=== PATIENT | female | born 1945 | race Caucasian/White ===

== ENCOUNTER 2017-05-24 06:47 | Inpatient (IN) | payer OTHER ==
[2017-05-03 11:57] VITALS: BMI 33.0
--- NOTE | 2017-05-03 12:31 | PAT Medication Instructions ---
Service Date May 03, 2017. Current Home Medication List Amlodipine (Norvasc), 10 MG PO QAM Estradiol (Estradiol), 1 TAB PO QPM Pediatric Multiple Vitamin W/ (Gummi Bear Multivitamin/M), 1 TAB PO QAM Ropinirole (Requip), 2 MG PO QPM Rosuvastatin Calcium (Crestor), 5 MG PO QPM Sennosides-Docusate Sodium (Stool Softener), 1 TAB PO BID Spironolactone (Aldactone), 25 MG PO QAM Tramadol (Ultram), 1-2 TAB PO UD PRN for Pain Medication Instructions For Your Scheduled Surgery - Check with surgeon for instructions: Estradiol (Estradiol), 1 TAB PO QPM - Hold the following medications 24 hours prior to surgery: Ropinirole (Requip), 2 MG PO QPM - Hold the following medications the morning of surgery: Pediatric Multiple Vitamin W/ (Gummi Bear Multivitamin/M), 1 TAB PO QAM Sennosides-Docusate Sodium (Stool Softener), 1 TAB PO BID Spironolactone (Aldactone), 25 MG PO QAM - Take the following medications the morning of surgery with a sip of water: Tramadol (Ultram), 1-2 TAB PO UD PRN for Pain (okay to take up to 4 hours prior to surgery if needed) Amlodipine (Norvasc), 10 MG PO QAM - Take the following medications as scheduled the night before surgery: Tramadol (Ultram), 1-2 TAB PO UD PRN for Pain (if needed) Sennosides-Docusate Sodium (Stool Softener), 1 TAB PO BID Rosuvastatin Calcium (Crestor), 5 MG PO QPM If you have any questions please call us at [phone] or [phone] or [phone]
--- NOTE | 2017-05-03 13:24 | DIAGNOSTIC IMAGING REPORT ---
CHEST 2 VIEWS ROUTINE CLINICAL HISTORY: Preoperative evaluation. COMPARISON STUDY: No previous studies for comparison. FINDINGS: Lung volumes are normal. There is no consolidation to suggest pneumonia and there is no evidence of pulmonary edema. Cardiac size is normal. A suspected moderate sized hiatal hernia is noted. IMPRESSION: 1. No acute cardiopulmonary findings. 2. Suspected moderate sized hiatal hernia. Electronically signed by: Bandar Calix M.D. 05/03/2017 1:22 PM Dictated Date/Time: 05/03/2017 1:21 PM
[2017-05-03 14:12] LABS: BASO % 0.3 %; BASO ABS # 0.02 K/uL (0-0.2); EOS % 3.2 %; EOS ABS # 0.21 K/uL (0-0.5); HEMATOCRIT 39.8 % (37-47); HEMOGLOBIN 13.6 g/dL (12.0-16.0); IG# 0.01 K/uL (0.00-0.02); LYMPH % 32.9 %; LYMPH ABS # 2.15 K/uL (1.2-3.4); MEAN CELL VOLUME 91.1 fL (80-100); MEAN CORPUSCULAR HEMOGLOBIN 31.1 pg (25-34); MEAN CORPUSCULAR HGB CONC 34.2 g/dl (32-36); MEAN PLATELET VOLUME 8.9 fL (7.4-10.4); MONO ABS # 0.65 K/uL (0.11-0.59); NEUT % 53.4 %; NEUT ABS # 3.49 K/uL (1.4-6.5); PLATELET COUNT 273 K/uL (130-400); RED CELL DISTRIBUTION WIDTH CV 13.2 % (11.5-14.5); WHITE BLOOD COUNT 6.53 K/uL (4.8-10.8)
[2017-05-03 14:22] LABS: PTT PATIENT 24.8 SECONDS (21.0-31.0)
[2017-05-03 14:51] LABS: CALCIUM 9.4 mg/dl (8.5-10.1); CREATININE 0.87 mg/dl (0.60-1.20); POTASSIUM 3.7 mmol/L (3.5-5.1)
[2017-05-03 14:54] LABS: TOTAL PROTEIN 8.2 gm/dl (6.4-8.2)
--- NOTE | 2017-05-23 20:14 | History and Physical ---
History & Physical Date May 23, 2017. Chief Complaint RIGHT KNEE PAIN History of Present Illness The patient is a 71 year old female with complaints of right knee pain for years. Cant do adls. Has hx of infection of right knee which has been treated. has tried PT and nsaids. Additional History Hepatic Disease: No Endocrine Disorder: No Kidney Disease: No Hypertension: Yes Heart Disease: No Bleeding Tendencies: No Infectious Diseases: No Allergies Coded Allergies: Hydrocodone (Verified Allergy, Unknown, NAUSEA, 05/03/17) Ibuprofen (Verified Allergy, Unknown, GI UPSET, 05/03/17) Levofloxacin (Verified Allergy, Unknown, HIVES, 05/03/17) Prochlorperazine (Verified Allergy, Unknown, NAUSEATED, SICK, ? BP ISSUE, 05/03/17) Sertraline (Verified Allergy, Unknown, MUSCLE SORENESS AND SICKNESS, ) Tetanus Toxoid (Verified Allergy, Unknown, HOT FLASHES - SITE RED, ) PT HAS "TETANUS" LISTED ALLERGY Valsartan (Verified Allergy, Unknown, HIVES, 05/03/17) Vancomycin (Verified Allergy, Unknown, HIVES, 05/03/17) Home Medications Scheduled Amlodipine (Norvasc), 10 MG PO QAM Estradiol (Estradiol), 1 TAB PO QPM Pediatric Multiple Vitamin W/ (Gummi Bear Multivitamin/M), 1 TAB PO QAM Ropinirole (Requip), 2 MG PO QPM Rosuvastatin Calcium (Crestor), 5 MG PO QPM Sennosides-Docusate Sodium (Stool Softener), 1 TAB PO BID Spironolactone (Aldactone), 25 MG PO QAM Scheduled PRN Tramadol (Ultram), 1-2 TAB PO UD PRN for Pain Physical Examination Skin: warm/dry, no rash Eyes: normal inspection, EOMI, sclerae normal ENT: normal ENT inspection, pharynx normal Head: normocephalic, atraumatic Neck: supple, no adenopathy, trachea midline Respiratory/Chest: lungs clear, normal breath sounds, no respiratory distress Cardiovascular: regular rate, rhythm, no edema, no murmur Abdomen / GI: normal bowel sounds, non tender Back: normal inspection Extremities: normal inspection, normal range of motion, + pertinent finding ( pain with rom right knee and joint line tenderness. ) Neurologic/Psych: no motor/sensory deficits, alert, normal reflexes, oriented x 3 Diagnosis DJD RIGHT KNEE Plan of Treatment PLAN IS FOR ADMISSION AND UNDERGO RIGHT TOTAL KNEE REPLACEMENT WITH HOME PT.
[2017-05-24] VITALS (11 sets, daily range): BP systolic 92–138; BP diastolic 57–85; PULSE 65–73; TEMP 36.3–36.7; O2SAT 92–96; Ht 162.6 cm; Wt 89.0 kg
[~2017-05-24] VITALS: Ht 162.6 cm; Wt 89.0 kg
[2017-05-24] MEDS: TRANEXAMIC ACID INJ 1,000 MG x 2 Bags IV SCH ×4 (06:30→09:05)
[~2017-05-24 06:47] MED LIST: ACETAMINOPHEN 500 MG TAB PO SCH; AMLO-114 PO; BUPIVACAINE 0.25% 30 ML VIAL ONE; BUPIVACAINE 0.5 % 5 MG/1 ML PF 10ML VIAL ONE; CEFAZOLIN 2000MG IV PUSH 15 ML IV SCH; CRS/10 PO; CeleBREX 200 MG CAP PO SCH; DEXAMETHASONE 4 MG TAB PO SCH; ESTR0.5T3 PO; FAMOTIDINE 20 MG TAB PO SCH; LACTATED RINGER'S 1000ML 1,000 ML IV SCH; LACTATED RINGER'S 1000ML 500 ML IV SCH; LACTATED RINGER'S 1000ML IV SCH; METOCLOPRAMIDE HCL 10 MG TAB PO SCH; PEDICHW34 PO; ROPI2TAB6 PO; ROPIVACAINE 5MG/ML 30 ML 150 MG, BUPIVACAINE 0.5% MPF INJ 30 ML, EpINEphrine HCL INJ 0.... INFIL SCH; SENNTAB23 PO; SPIR25TA PO; TRAM-10 PO
[2017-05-24] MEDS ORDERED: EpHEDrine SULFATE INJ 50 MG/ML AMP IV PRN (07:30)
[2017-05-24] MEDS ORDERED: ATROPINE SULFATE 0.1 MG/ML 5ML SYR IV PRN (07:30)
[2017-05-24] MEDS ORDERED: ONDANSETRON INJ 2 MG/ML 2 ML VIAL IV PRN ×2 (07:30→10:30)
--- NOTE | 2017-05-24 08:31 | History & Physical Bridge Note ---
H&P Re-Evaluation Bridge Note: I have examined the patient, reviewed the History & Physical and in the interval since the performance of the History & Physical I have noted the following changes of clinical significance: No changes noted
[2017-05-24] MEDS ORDERED: ORTHO JOINT ANESTHETIC ONE (08:40)
[2017-05-24] MEDS ORDERED: BACITRACIN 50000 UNIT VIAL ONE (08:41)
[2017-05-24] MEDS ORDERED: POVIDONE-IODINE OP SOLN 30 ML BTL ONE (08:41)
[2017-05-24] MEDS ORDERED: MIDAZOLAM HCL 1 MG/ML 2ML VIAL ONE (09:02)
[2017-05-24] MEDS ORDERED: FENTANYL CITRATE INJ 50 MCG/1 ML 2 ML VIAL ONE (09:02)
[2017-05-24] MEDS ORDERED: ONDANSETRON INJ 2 MG/ML 2 ML VIAL ONE (09:54)
[2017-05-24] MEDS ORDERED: CEFAZOLIN IV 2 MG in DEXTROSE 5% 50ML 50 ML IV SCH (10:30)
[2017-05-24] MEDS ORDERED: ALUMINUM/MAGNESIUM/SIMETH (MAALOX MAX) 30 ML UDC PO PRN (10:30)
[2017-05-24] MEDS ORDERED: ZOLPIDEM TARTRATE 5 MG TAB PO PRN (10:30)
--- NOTE | 2017-05-24 10:32 | [facility] Operative Report ---
Operative Report Operative Date May 24, 2017. Pre-Operative Diagnosis Degenerative Joint Disease right knee Post-Operative Diagnosis SAME PREOP Procedure(s) Performed Right total knee arthroplasty with the use of patient matched implants Surgeon Dr. Hartmann Help Desk Consultant Surgeon(s) Zack Washburn PAC Estimated Blood Loss 20ML Findings As above Specimens Right knee bone and tissue Drains None Anesthesia Type MAC Spinal Regional Complication(s) none Disposition Recovery Room / PACU Description of Procedure IMPLANTS USED: Sullivan nephew journey to the size 5 cemented femoral component, a size 4 tibial component, a size 11 PS insert and size 32 all polyethylene patella INDICATIONS: Mrs. Johnson is a pleasant female) who has unfortunately failed all forms of conservative measures. Therefore, they have decided to undergo elective surgical intervention. All risks and benefits of the surgery were discussed with the patient and the family in entirety. PROCEDURE: The patient was brought to the operating room and properly identified by myself, anesthesia, and staff. Patient was given a spinal anesthesia and placed on the operating table in the supine position. Tourniquets were applied to the right upper thigh. The leg was then prepped and draped in usual sterile fashion. We made a standard midline approach over the patella and dissected down through the subcutaneous tissue to identify the capsule and performed a medial capsulotomy with the patella everted and the knee flexed.The patient matched implant was then put onto the femur. The femur measured to be a size 5. This was then put into place. We made the appropriate cuts and then placed a retractor behind the proximal tibia to retract anteriorly. We then placed the patient matched knee implant on the tibia. It measured to be a size 4. A size 4 guide was then put in place. We used the tibial punch then put the trial components into place. We had very good range of motion, excellent stability, and excellent patella tracking. We removed the trial components and irrigated the wound. We impacted the components in place using antibiotic cement. All excess cement was removed. We then irrigated the wound once more. We closed the capsule with 0 PDS suture , deep dermis and 2-0 Vicryl, and finally the skin with jose. A sterile dressing was applied. The patient was taken to the recovery room in stable condition. Due to the complex nature of the procedure, the entire surgery was performed with the operational assistance of the CAROL. The pastry assistant was under direct supervision, was involved in the actual performance of all aspects of the surgical procedure including hemostasis, tissue retraction and incision, instrument management, patient positioning, and wound closure. I attest to the content of the Intraoperative Record and any orders documented therein. Any exceptions are noted below.
--- NOTE | 2017-05-24 11:34 | Anesthesiology Progress Note ---
Anesthesia Post Op Note Date & Time May 24, 2017 at 11:34 Vital Signs Pain Intensity: 0 Vital Signs Past 12 Hours Date Time Temp Pulse Resp B/P (MAP) Pulse Ox O2 Delivery O2 Flow Rate FiO2 05/24/17 11:20 72 16 100/51 94 Nasal Cannula 4 05/24/17 11:10 77 16 112/58 94 Oxymask 10 05/24/17 11:00 37. 82 14 127/64 94 Oxymask 10 05/24/17 07:35 36.5 72 20 138/85 93 Room Air Notes Mental Status: alert / awake / arousable, participated in evaluation Pt Amnestic to Procedure: Yes Nausea / Vomiting: adequately controlled Pain: adequately controlled Airway Patency, RR, SpO2: stable & adequate BP & HR: stable & adequate Hydration State: stable & adequate Neuraxial Anesthesia: was administered, sensory block is resolving Anesthetic Complications: no major complications apparent
[2017-05-24] MEDS: ACETAMINOPHEN 500 MG TAB PO SCH ×2 (14:07→21:28)
[2017-05-24] MEDS: SODIUM CHLORIDE 0.9% 1000ML 1,000 ML IV SCH ×2 (14:07→22:22)
[2017-05-24] MEDS ORDERED: TRANEXAMIC ACID INJ 1,000 MG in SODIUM CHLORIDE 0.9% 100ML 100 ML IV SCH (17:00)
[2017-05-24] MEDS: CEFAZOLIN IV 2,000 MG in SYRINGE 0 ML IV SCH (17:36)
[2017-05-24] MEDS: ROSUVASTATIN CALCIUM 10 MG TAB PO SCH (19:37)
[2017-05-24] MEDS: ROPINIROLE HCL 1 MG TAB PO SCH (19:37)
[2017-05-24] MEDS: ASPIRIN 81 MG ECTAB PO SCH (19:38)
[2017-05-24] MEDS: OXYCODONE HCL IR 5 MG TAB (IMMEDIATE RELEASE) PO PRN ×2 (19:39→20:19)
[2017-05-25] MEDS: CEFAZOLIN IV 2,000 MG in SYRINGE 0 ML IV SCH (02:29)
[2017-05-25 03:24] VITALS: BP 108/66; PULSE 74; TEMP 36.8; O2SAT 96
[2017-05-25] MEDS: OXYCODONE HCL IR 5 MG TAB (IMMEDIATE RELEASE) PO PRN ×3 (03:46→21:45)
[2017-05-25] MEDS: ACETAMINOPHEN 500 MG TAB PO SCH ×3 (06:11→21:39)
[2017-05-25] MEDS ORDERED: DEXAMETHASONE INJ 10 MG in SYRINGE 0 ML IV SCH (07:30)
[2017-05-25 07:52] VITALS: BP 115/72; PULSE 59; TEMP 36.9; O2SAT 90
--- NOTE | 2017-05-25 08:06 | Orthopedic Progress Note ---
Orthopedic Progress Note Date of Service May 25, 2017. Subjective Post OP Day: 1 Reports: feeling well, Denies: chest pain, SOB, nausea / vomiting, light headedness Objective calves soft nontender, N/V intact, capillary refill less than 2 sec., dressing C /D/I, A&O x3, toes mobile Date Time Temp Pulse Resp B/P (MAP) Pulse Ox O2 Delivery O2 Flow Rate FiO2 05/25/17 07:52 36.9 59 16 115/72 (86) 90 Room Air 05/25/17 07:10 Nasal Cannula 2.0 05/25/17 03:24 36.8 74 16 108/66 (80) 96 Nasal Cannula 2.0 05/24/17 22:59 36.7 72 16 100/64 (76) 95 Room Air 05/24/17 19:15 92 Nasal Cannula 2.0 05/24/17 15:33 Nasal Cannula 05/24/17 15:30 36.4 70 20 97/62 (74) 96 Nasal Cannula 3.0 05/24/17 14:50 36.3 70 16 92/58 (69) 94 Nasal Cannula 2.0 05/24/17 13:50 36.4 71 16 103/65 (78) 95 Nasal Cannula 3.0 05/24/17 12:50 36.3 65 16 92/57 (69) 94 Nasal Cannula 3.0 05/24/17 12:20 36.6 70 14 100/65 (77) 92 Nasal Cannula 3.0 05/24/17 11:53 94 Nasal Cannula 3.0 05/24/17 11:50 94 Nasal Cannula 3.0 05/24/17 11:49 36.4 73 16 103/66 (78) 94 Nasal Cannula 3.0 05/24/17 11:40 36.8 72 16 118/64 98 Nasal Cannula 4 05/24/17 11:30 71 16 110/64 97 Nasal Cannula 4 05/24/17 11:20 72 16 100/51 94 Nasal Cannula 4 05/24/17 11:10 77 16 112/58 94 Oxymask 10 05/24/17 11:00 37. 82 14 127/64 94 Oxymask 10 Assessment & Plan Assessment: POD#1 SP RIGHT TKA Plan: PT/OT DVT PROPH- ASA 81MG BID PAIN MANAGEMENT- [facility], TYLENOL DC PLANNING- REQUESTING REFERRAL TO [facility]. STABLE FOR TRANSFER TODAY IF ACCEPTED.
[2017-05-25] MEDS ORDERED: ASPEC81 PO (08:08)
[2017-05-25] MEDS ORDERED: RXC5 PO (08:08)
[2017-05-25] MEDS ORDERED: ACET-24 PO (08:08)
[2017-05-25] MEDS ORDERED: ONDA8TAB6 PO (08:08)
[2017-05-25] MEDS ORDERED: CEFA500C2 PO (08:08)
--- NOTE | 2017-05-25 08:09 | Discharge Instructions ---
Discharge Instructions Date of Service May 25, 2017. Admission Reason for Admission: Right Knee Osteoarthritis Discharge Discharge Diagnosis / Problem: SP RIGHT TKA Discharge Goals Goal(s): Decrease discomfort, Improve function, Increase independence Activity Recommendations Activity Level: Assistance Required Therapies: Physical Therapy, Weight Bearing Status, Occupational Therapy Weightbearing Status: Right weightbearing . Additional Information Patient informed of condition: Yes Advance Directives: Yes DNR: No Level of Care: Acute Rehab Communicable Disease: No Prognosis: Stable Instructions / Follow-Up Instructions / Follow-Up ACTIVITY RECOMMENDATIONS: SELF CARE INSTRUCTIONS AFTER TOTAL KNEE REPLACEMENT A. You may need to continue a physical therapy program after discharge from the hospital. There are several options available to you. Your doctor will assist you in selecting the best one for you. 1. An out-patient facility 2 to 3 times a week for therapy or home therapy. 2. Continue working on all exercises taught to you in the hospital. Your goals should be to increase bending of your knee to 90 degrees and beyond and to fully straighten your knee. B. You may progress at your own pace from walking with a walker or crutches to a cane; then to no assistive devices. C. Make walking a part of your daily routine. Be up as much as comfortable with rest periods throughout the day. Rest with leg elevation is very important. Use the ice wrap frequently for the first 3-4 weeks. D. There are no restrictions on activities. You may ride in a car, shop, participate in stuffed casing tier and all social activities. E. Wear the long elastic stockings (SARAH hose) 20 hours a day for 2 weeks after surgery. They can be removed several times a day for laundering and for a bath. F. You may shower, no tub baths until cleared by your doctor. SPECIAL CARE INSTRUCTIONS: VERY IMPORTANT TO READ AND REVIEW A. There are a few signs you need to watch for after you are home. Call [facility] if you notice any of the followin. Increased severe knee pain. Some pain is expected especially when you exercise. 2. Increased swelling in your leg or knee; pain or swelling of the calf muscle in either lower leg. 3. Any fluid drainage from the incision. 4. Shortness of breath or chest pain. B. Please call [facility] at if you have any concerns or questions about your operation or recovery. The doctor or his nurse will return your call promptly. C. You must take antibiotics before dental work, bladder, bowel or other surgery. Your doctor will provide you with a permanent care to carry describing this precaution. IMPORTANT: * REMEMBER TO TAKE ASPIRIN, 81 MG, TWICE DAILY FOR 4 WEEKS UNLESS OTHERWISE DIRECTED. THIS IS YOUR BLOOD THINNER. * HIGH RISK PATIENTS MAY BE PRESCRIBED A STRONGER BLOOD THINNER. THIS WILL BE PROVIDED AT DISCHARGE. * CALL IF INCREASED PAIN, REDNESS, DRAINAGE OR FEVER GREATER THAT 101. * WEAR SARAH HOSE 20 HOURS PER DAY FOR 2 WEEKS. * YOU MAY HAVE A LARGE BAND-AID LIKE DRESSING (SILVERON). THIS WILL REMAIN ON YOUR INCISION FOR 7 DAYS, THEN CAN BE REMOVED. IF INCISION IS LEAKING THROUGH DRESSING, CALL THE OFFICE . FOLLOW UP VISIT: If appointment is not already scheduled: Please call [facility] to make a follow-up appointment for 2 weeks after your surgery at . Current Hospital Diet Patient's current hospital diet: Regular Diet Discharge Diet Recommended Diet: Regular Diet Procedures Procedures Performed: Right total knee arthroplasty with the use of patient matched implants Pending Studies Studies pending at discharge: no Physician Orders On Transfer Additional Orders: DC DRESSING POD2 FOLLOW UP IN 2 WEEKS SCHEDULED AT U. [phone]. ASA 81MG BID X 30 DAYS Medical Emergencies . Who to Call and When: Medical Emergencies: If at any time you feel your situation is an emergency, please call 151 immediately. . Non-Emergent Contact Non-Emergency issues call your: Surgeon . . "Provider Documentation" section prepared by Mildred Briceño. . Core Measure Problem Core Measures: None [place] Drug Monitoring Program Search Results: patient reviewed within database, no issues identified
--- NOTE | 2017-05-25 08:22 | Anesthesiology Progress Note ---
Anesthesia Post Op Note Date & Time May 25, 2017 at 08:21 Vital Signs Pain Intensity: 0.0 Vital Signs Past 12 Hours Date Time Temp Pulse Resp B/P (MAP) Pulse Ox O2 Delivery O2 Flow Rate FiO2 05/25/17 07:52 36.9 59 16 115/72 (86) 90 Room Air 05/25/17 07:10 Nasal Cannula 2.0 05/25/17 03:24 36.8 74 16 108/66 (80) 96 Nasal Cannula 2.0 05/24/17 22:59 36.7 72 16 100/64 (76) 95 Room Air Notes Mental Status: alert / awake / arousable, participated in evaluation Pt Amnestic to Procedure: Yes Nausea / Vomiting: adequately controlled Pain: adequately controlled Airway Patency, RR, SpO2: stable & adequate BP & HR: stable & adequate Hydration State: stable & adequate Neuraxial Anesthesia: sensory block resolved Anesthetic Complications: no major complications apparent
[2017-05-25] MEDS: AMLODIPINE BESYLATE 5 MG TAB PO SCH (08:33)
[2017-05-25] MEDS: SPIRONOLACTONE 25 MG TAB PO SCH (08:33)
[2017-05-25] MEDS: SODIUM CHLORIDE 0.9% 1000ML 1,000 ML IV SCH (08:33)
[2017-05-25] MEDS: ASPIRIN 81 MG ECTAB PO SCH ×2 (08:33→21:40)
[2017-05-25 17:21] VITALS: BP 107/65; PULSE 71; TEMP 36.6; O2SAT 90
[2017-05-25] MEDS: ROPINIROLE HCL 1 MG TAB PO SCH (21:00)
[2017-05-25] MEDS: ROSUVASTATIN CALCIUM 10 MG TAB PO SCH (21:40)
[2017-05-25 23:00] VITALS: BP 108/68; PULSE 66; TEMP 36.9; O2SAT 91
[2017-05-26] MEDS: OXYCODONE HCL IR 5 MG TAB (IMMEDIATE RELEASE) PO PRN ×2 (02:38→10:06)
[2017-05-26] MEDS: ACETAMINOPHEN 500 MG TAB PO SCH (05:34)
[2017-05-26 06:14] VITALS: BP 124/83; PULSE 58; TEMP 36.7; O2SAT 93
[2017-05-26] MEDS: AMLODIPINE BESYLATE 5 MG TAB PO SCH (07:08)
[2017-05-26] MEDS: SPIRONOLACTONE 25 MG TAB PO SCH (07:08)
[2017-05-26] MEDS: ASPIRIN 81 MG ECTAB PO SCH (07:08)
--- NOTE | 2017-05-26 07:33 | Orthopedic Progress Note ---
Orthopedic Progress Note Date of Service May 26, 2017. Subjective Post OP Day: 2 Reports: feeling well, Denies: chest pain, SOB, nausea / vomiting, light headedness, calf pain Objective calves soft nontender, N/V intact, capillary refill less than 2 sec., incision C /D/I, A&O x3, toes mobile Date Time Temp Pulse Resp B/P (MAP) Pulse Ox O2 Delivery O2 Flow Rate FiO2 05/26/17 06:14 36.7 58 16 124/83 (97) 93 Room Air 05/26/17 00:10 Room Air 05/25/17 23:00 36.9 66 15 108/68 (81) 91 Room Air 05/25/17 17:21 36.6 71 18 107/65 (79) 90 05/25/17 17:00 Room Air 05/25/17 07:52 36.9 59 16 115/72 (86) 90 Room Air Assessment & Plan Assessment: POD#2 SP RIGHT TKA Plan: PT/OT DVT PROPH- ASA 81MG BID PAIN MANAGEMENT- [facility], TYLENOL GIDEON PLANNING- REQUESTING REFERRAL TO [facility]. IF PATIENT IS DENIED, SHE WILL LIKELY GO HOME WITH HOME PT. DC HOME TODAY
--- NOTE | 2017-05-26 07:35 | Discharge Instructions ---
Discharge Instructions Date of Service May 26, 2017. Admission Reason for Admission: Right Knee Osteoarthritis Discharge Discharge Diagnosis / Problem: SP RIGHT TKA Discharge Goals Goal(s): Decrease discomfort, Improve function, Increase independence Activity Recommendations Activity Limitations: per Instructions/Follow-up section . Instructions / Follow-Up Instructions / Follow-Up ACTIVITY RECOMMENDATIONS: SELF CARE INSTRUCTIONS AFTER TOTAL KNEE REPLACEMENT A. You may need to continue a physical therapy program after discharge from the hospital. There are several options available to you. Your doctor will assist you in selecting the best one for you. 1. An out-patient facility 2 to 3 times a week for therapy or home therapy. 2. Continue working on all exercises taught to you in the hospital. Your goals should be to increase bending of your knee to 90 degrees and beyond and to fully straighten your knee. B. You may progress at your own pace from walking with a walker or crutches to a cane; then to no assistive devices. C. Make walking a part of your daily routine. Be up as much as comfortable with rest periods throughout the day. Rest with leg elevation is very important. Use the ice wrap frequently for the first 3-4 weeks. D. There are no restrictions on activities. You may ride in a car, shop, participate in computer networking instructor adjunct and all social activities. E. Wear the long elastic stockings (SARAH hose) 20 hours a day for 2 weeks after surgery. They can be removed several times a day for laundering and for a bath. F. You may shower, no tub baths until cleared by your doctor. SPECIAL CARE INSTRUCTIONS: VERY IMPORTANT TO READ AND REVIEW A. There are a few signs you need to watch for after you are home. Call [facility] if you notice any of the followin. Increased severe knee pain. Some pain is expected especially when you exercise. 2. Increased swelling in your leg or knee; pain or swelling of the calf muscle in either lower leg. 3. Any fluid drainage from the incision. 4. Shortness of breath or chest pain. B. Please call [facility] at if you have any concerns or questions about your operation or recovery. The doctor or his nurse will return your call promptly. C. You must take antibiotics before dental work, bladder, bowel or other surgery. Your doctor will provide you with a permanent care to carry describing this precaution. IMPORTANT: * REMEMBER TO TAKE ASPIRIN, 81 MG, TWICE DAILY FOR 4 WEEKS UNLESS OTHERWISE DIRECTED. THIS IS YOUR BLOOD THINNER. * HIGH RISK PATIENTS MAY BE PRESCRIBED A STRONGER BLOOD THINNER. THIS WILL BE PROVIDED AT DISCHARGE. * CALL IF INCREASED PAIN, REDNESS, DRAINAGE OR FEVER GREATER THAT 101. * WEAR SARAH HOSE 20 HOURS PER DAY FOR 2 WEEKS. * YOU MAY HAVE A LARGE BAND-AID LIKE DRESSING (SILVERON). THIS WILL REMAIN ON YOUR INCISION FOR 7 DAYS, THEN CAN BE REMOVED. IF INCISION IS LEAKING THROUGH DRESSING, CALL THE OFFICE . FOLLOW UP VISIT: If appointment is not already scheduled: Please call [facility] to make a follow-up appointment for 2 weeks after your surgery at . Current Hospital Diet Patient's current hospital diet: Regular Diet Discharge Diet Recommended Diet: Regular Diet Procedures Procedures Performed: Right total knee arthroplasty with the use of patient matched implants Pending Studies Studies pending at discharge: no Medical Emergencies . Who to Call and When: Medical Emergencies: If at any time you feel your situation is an emergency, please call 911 immediately. . Non-Emergent Contact Non-Emergency issues call your: Surgeon . "Provider Documentation" section prepared by Mildred Briceño. . [place] Drug Monitoring Program Search Results: patient reviewed within database, no issues identified
[2017-05-26 07:51] VITALS: BP 124/83; PULSE 58; TEMP 36.7; O2SAT 93
--- NOTE | 2017-05-29 13:41 | DISCHARGE SUMMARY ---
DISCHARGE DIAGNOSIS: Degenerative joint disease, right knee. SECONDARY DIAGNOSES: Hypertension, hypercholesterolemia. CONSULTS: None. COMPLICATIONS: None. PROCEDURES: Right total knee arthroplasty performed by Dr. Hartmann on 05/24/2017. BRIEF HISTORY: As dictated in the history and physical. HOSPITAL SUMMARY: The patient was admitted on the above-noted date and had the above-noted surgery performed, which she tolerated well. On the first postoperative day, she was feeling well and had no complaints. Calves were soft and nontender. Neurovascularly intact. Dressings were clean, dry and intact. Toes were mobile. Vital signs were stable. She was afebrile and she was started on Trevor protocol and continued on DVT prophylaxis and pain management. The patient was hoping to go to [facility] for further care post-discharge. By her second postoperative day, she was feeling well and had no complaints. Calves were soft and nontender. Neurovascularly intact. Incision was clean, dry and intact. Toes were mobile. Vital signs were stable and she was progressing with her physical therapy and it was felt that she be transferred to [facility] for further physical therapy and care. For further review, please see chart. LABORATORY AND X-RAY DATA: As per chart. DISCHARGE INSTRUCTIONS: The patient was discharged to [facility], in satisfactory condition on 05/26/2017. DIET: Regular. ACTIVITY: Follow TKA instruction sheets and special care instructions as noted. Follow up with Dr. Hartmann in 2 weeks. The patient is to call for appointment if one has not been made for you. DISCHARGE MEDICATIONS: Acetaminophen 1000 mg p.o. q. 8 hours for 30 days, aspirin 81 mg p.o. b.i.d. for 30 days, Duricef 500 mg p.o. b.i.d. taken to finished, Zofran 8 mg p.o. q. 8 hours p.r.n. nausea, oxycodone 5-10 mg p.o. q. 4 hours p.r.n. pain. Resume home meds as listed.
== END 2017-05-26 10:44 | disposition home health service (06) | DRG 470 ==
LOC: C.ACU 06:47 → C.3E 08:10 → ENRESERV 11:09
PROVIDERS: ADMIT Orthopaedic Surgery; ATTEND Orthopaedic Surgery
PROC: 0SRC0J9 Replacement of Right Knee Joint with Synthetic Substitute, Cemented, Open Approach (ICD-10-PCS; principal; 2017-05-24 09:30)
DX: M17.11 Unilateral primary osteoarthritis, right knee (principal); Z79.899 Other long term (current) drug therapy; Z88.5 Allergy status to narcotic agent; Z88.6 Allergy status to analgesic agent; Z88.1 Allergy status to other antibiotic agents; Z88.7 Allergy status to serum and vaccine